=== PATIENT | female | born 2000 | race Caucasian/White ===

== ENCOUNTER 2023-04-02 13:24 | Emergency (ER) | payer OTHER ==
[~2023-04-02] VITALS: Ht 162.6 cm; Wt 45.4 kg
[2023-04-02] MEDS ORDERED: LYLEQ0.35 MG PO (13:53)
[2023-04-02] MEDS ORDERED: NAPROXEN500 MG PO (18:01)
[2023-04-02] MEDS ORDERED: CYCLOBENZAPRINE10 MG PO (18:01)
== END 2023-04-02 18:08 | disposition home or self-care (01) ==
LOC: ER 13:25
DX: M54.2 Cervicalgia (principal); Z88.8 Allergy status to other drugs, medicaments and biological substances